=== PATIENT | male | born 1990 | race African-American/Black ===

== ENCOUNTER 2023-12-08 13:45 | Emergency (ER) | payer BC ==
[~2023-12-08] VITALS: Ht 175.3 cm; Wt 99.7 kg
[2023-12-08] VITALS (8 sets, daily range): BP systolic 131–146; BP diastolic 84–97
[2023-12-08 14:23] LABS: BASO% 0.7 % (0-3); EOS% 0.3 % (0-8); HEMATOCRIT 48.7 % (39.0-50.0); HEMOGLOBIN 16.1 g/dl (14.0-18.0); IMMATURE GRANULOCYTES 0.6 % (0.0-5.0); MEAN CELL VOLUME 87.4 fL CALC (80.0-100.0); MEAN CORPUSCULAR HGB 28.9 pG CALC (26.0-32.0); MEAN CORPUSCULAR HGB CONC 33.1 g/dL CAL (32.0-36.0); NEUT# 7.87 thou/uL (1.82-7.42); NEUT% 73.4 % (42-76); RED BLOOD COUNT 5.57 mill/uL (4.70-6.10); RED CELL DISTRI WIDTH 12.2 % (11.5-15.5)
[2023-12-08 14:38] LABS: ALBUMIN 4.9 g/dL (3.2-5.0); ALKALINE PHOSPHATASE 82 u/l (38-126); ANION GAP 15 (6-22 (CALC)); BILIRUBIN, TOTAL 0.5 mg/dL (0.2-1.3); BUN 15 mg/dL (9-20); BUN/CREATININE RATIO 17 (12-20 (CALC)); CARBON DIOXIDE 21 mmol/l (22-30); CHLORIDE 106 mmol/l (95-108); CREATININE 0.9 mg/dL (0.7-1.3); GFR FOR AFR.AMER. > 60 ML/MIN (>=60 (CALC)); GFR OTHER RACES > 60 ML/MIN (>=60 (CALC)); LIPASE 229 u/l (23-300); POTASSIUM 4.1 mmol/l (3.5-5.1); SGOT/AST 44 u/l (17-59); SODIUM 138 mmol/l (137-146); TOTAL PROTEIN 8.4 g/dL (6.3-8.2)
[2023-12-08 14:39] LABS: ACT PARTIAL THROMBO TIME 21.9 SECONDS (20.0-32.5); INTERNATIONAL NORMALIZED RATIO 1.1 RATIO (0.7-1.3); PROTHROMBIN TIME 10.7 SECONDS (9.0-12.5)
[2023-12-08 17:18] LABS: URINE BILIRUBIN - DIPSTICK Negative (NEGATIVE); URINE BLOOD DIPSTICK Negative (NEGATIVE); URINE CLARITY Clear; URINE GLUCOSE - DIPSTICK Negative (NEGATIVE); URINE KETONE 15 mg/dL (NEGATIVE); URINE LEUK ESTERASE Negative (Negative); URINE NITRITE - DIPSTICK Negative (Negative); URINE PH 6.5 (4.5-8.0); URINE PROTEIN - DIPSTICK 30 mg/dL (NEG-TRACE); URINE SPECIFIC GRAVITY >=1.030; URINE UROBILINOGEN - DIPSTICK 0.2 E.U./dL (0.2)
[2023-12-08 17:23] LABS: URINE COLOR Yellow
[2023-12-08 17:25] LABS: URINE MUCUS FEW hpf (NONE-FEW)
[2023-12-08] MEDS ORDERED: ONDANSETRON4 MG PO (18:06)
== END 2023-12-08 18:39 | disposition home or self-care (01) | DRG 392 ==
LOC: ED 13:45
PROVIDERS: Nurse Practitioner Acute Care
DX: R10.13 Epigastric pain (principal); R11.2 Nausea with vomiting, unspecified; F17.290 Nicotine dependence, other tobacco product, uncomplicated; Z20.822 Contact with and (suspected) exposure to COVID-19

== ENCOUNTER 2024-01-24 23:16 | Emergency (ER) | payer BC ==
[~2024-01-24] VITALS: Ht 175.3 cm; Wt 92.9 kg
[~2024-01-24 23:16] MED LIST: ONDANSETRON4 MG PO
[2024-01-24 23:34] VITALS: BP 126/79
[2024-01-25 00:01] VITALS: BP 153/96
[2024-01-25] MEDS ORDERED: HYDROmorphone HCL 2 MG/AMP IV STA (00:51)
[2024-01-25] MEDS ORDERED: ONDANSETRON HCl 4 MG/2 ML SDV IV ONE (00:55)
[2024-01-25] MEDS ORDERED: Pantoprazole Sodium 40 MG VIAL (Protonix) IV ONE (00:55)
[2024-01-25 01:01] VITALS: BP 123/76
[2024-01-25 02:04] LABS: BASO% 0.6 % (0-3); EOS% 0.1 % (0-8); HEMATOCRIT 45.1 % (39.0-50.0); HEMOGLOBIN 14.9 g/dl (14.0-18.0); IMMATURE GRANULOCYTES 0.4 % (0.0-5.0); LYMPH% 16.5 % (15-41); MEAN CELL VOLUME 87.9 fL CALC (80.0-100.0); NEUT# 7.91 thou/uL (1.82-7.42); NEUT% 77.4 % (42-76); RED BLOOD COUNT 5.13 mill/uL (4.70-6.10); RED CELL DISTRI WIDTH 12.4 % (11.5-15.5)
[2024-01-25 02:22] LABS: ALBUMIN 4.6 g/dL (3.2-5.0); ALKALINE PHOSPHATASE 70 u/l (38-126); AMYLASE 93 u/l (30-110); ANION GAP 16 (6-22 (CALC)); BILIRUBIN, TOTAL 0.6 mg/dL (0.2-1.3); BUN 13 mg/dL (9-20); BUN/CREATININE RATIO 15 (12-20 (CALC)); CARBON DIOXIDE 19 mmol/l (22-30); CHLORIDE 107 mmol/l (95-108); CREATININE 0.8 mg/dL (0.7-1.3); GFR FOR AFR.AMER. > 60 ML/MIN (>=60 (CALC)); GFR OTHER RACES > 60 ML/MIN (>=60 (CALC)); LIPASE 219 u/l (23-300); SGOT/AST 36 u/l (17-59); SODIUM 138 mmol/l (137-146); TOTAL PROTEIN 7.8 g/dL (6.3-8.2)
[2024-01-25] MEDS ORDERED: SODIUM CHLORIDE 0.9% 1,000 ML IV STA (02:45)
[2024-01-25] MEDS ORDERED: PROTONIX40 M2 PO (03:55)
[2024-01-25 04:35] LABS: URINE BLOOD DIPSTICK Negative (NEGATIVE); URINE GLUCOSE - DIPSTICK Negative (NEGATIVE); URINE KETONE 40 mg/dL (NEGATIVE); URINE LEUK ESTERASE Negative (NEGATIVE); URINE NITRITE - DIPSTICK Negative (Negative); URINE PH 6.5 (4.5-8.0); URINE PROTEIN - DIPSTICK 100 mg/dL (NEG-TRACE); URINE SPECIFIC GRAVITY >=1.030
[2024-01-25 04:37] LABS: URINE COLOR Yellow
[2024-01-25 04:54] VITALS: BP 123/76
[2024-01-25 05:08] LABS: URINE MUCUS MANY hpf (NONE-FEW); URINE SQUAMOUS EPITHELIAL CELL FEW EPI/hpf (0-FEW); URINE WBC 0-2 WBC/hpf (0-5)
[2024-01-25] MEDS ORDERED: ZOFRAN4 MG/TAB PO (07:35)
== END 2024-01-25 04:55 | disposition home or self-care (01) | DRG 392 ==
LOC: ED 23:16
PROVIDERS: Family Medicine
DX: K29.70 Gastritis, unspecified, without bleeding (principal); F17.290 Nicotine dependence, other tobacco product, uncomplicated
CPT/HCPCS: S0164

== ENCOUNTER 2024-07-31 11:34 | Emergency (ER) | payer BC ==
[~2024-07-31] VITALS: Ht 175.3 cm; Wt 81.6 kg
[2024-07-31] VITALS (17 sets, daily range): BP systolic 108–152; BP diastolic 60–108
[~2024-07-31 11:34] MED LIST changes: +PROTONIX40 M2 PO; +ZOFRAN4 MG/TAB PO
[2024-07-31] MEDS ORDERED: SODIUM CHLORIDE 0.9% 1,000 ML IV STA (12:48)
[2024-07-31] MEDS ORDERED: ONDANSETRON HCl 4 MG/2 ML SDV IV STA (12:48)
[2024-07-31] MEDS ORDERED: Pantoprazole Sodium 40 MG VIAL (Protonix) IV STA (12:48)
[2024-07-31] MEDS ORDERED: FAMOTIDINE 10MG/ML 2ML SDV IV ONE (12:50)
[2024-07-31 13:01] LABS: BASO% 0.3 % (0-3); HEMATOCRIT 47.7 % (39.0-50.0); IMMATURE GRANULOCYTES 0.2 % (0.0-5.0); LYMPH% 17.2 % (15-41); MEAN CELL VOLUME 88.8 fL CALC (80.0-100.0); MEAN CORPUSCULAR HGB 29.8 pG CALC (26.0-32.0); MEAN CORPUSCULAR HGB CONC 33.5 g/dL CAL (32.0-36.0); MONO% 11.3 % (2-13); NEUT# 6.9 thou/uL (1.82-7.42); RED BLOOD COUNT 5.37 mill/uL (4.70-6.10); RED CELL DISTRI WIDTH 12.5 % (11.5-15.5)
[2024-07-31 13:11] LABS: ALBUMIN 4.6 g/dL (3.2-5.0); BILIRUBIN, TOTAL 0.6 mg/dL (0.2-1.3); CREATININE 0.9 mg/dL (0.7-1.3); POTASSIUM 3.7 mmol/l (3.5-5.1); TOTAL PROTEIN 7.8 g/dL (6.3-8.2)
[2024-07-31 15:03] LABS: URINE BLOOD DIPSTICK Negative (NEGATIVE); URINE COLOR Yellow; URINE GLUCOSE - DIPSTICK Negative (NEGATIVE); URINE KETONE 40 mg/dL (NEGATIVE); URINE LEUK ESTERASE Negative (NEGATIVE); URINE NITRITE - DIPSTICK Negative (Negative); URINE PROTEIN - DIPSTICK Trace mg/dL (NEG-TRACE)
[2024-07-31] MEDS ORDERED: ONDANSETRON4 MG PO (15:58)
[2024-07-31] MEDS ORDERED: PROTONIX40 M2 PO (15:58)
== END 2024-07-31 16:31 | disposition home or self-care (01) | DRG 392 ==
LOC: ED 11:34
PROVIDERS: Nurse Practitioner
DX: K29.70 Gastritis, unspecified, without bleeding (principal); Z72.0 Tobacco use
CPT/HCPCS: J2470; Q9967

== ENCOUNTER 2025-01-28 16:27 | Emergency (ER) | payer BC ==
[2025-01-28] VITALS (17 sets, daily range): BP systolic 123–171; BP diastolic 75–104
[~2025-01-28] VITALS: Ht 175.3 cm; Wt 86.1 kg
[2025-01-28] MEDS ORDERED: SODIUM CHLORIDE 0.9% 1,000 ML IV STA (17:33)
[2025-01-28] MEDS ORDERED: Pantoprazole Sodium 40 MG VIAL (Protonix) IV STA (17:33)
[2025-01-28] MEDS ORDERED: PROMETHAZINE HCL 25 MG/ML AMP IV STA (17:33)
[2025-01-28 17:42] LABS: BASO% 0.4 % (0-3); EOS% 0.2 % (0-8); HEMATOCRIT 47.9 % (39.0-50.0); HEMOGLOBIN 16.4 g/dl (14.0-18.0); IMMATURE GRANULOCYTES 0.2 % (0.0-5.0); LYMPH% 17.9 % (15-41); MEAN CELL VOLUME 88.1 fL CALC (80.0-100.0); MEAN CORPUSCULAR HGB 30.1 pG CALC (26.0-32.0); MEAN CORPUSCULAR HGB CONC 34.2 g/dL CAL (32.0-36.0); MONO% 6.2 % (2-13); NEUT# 7.54 thou/uL (1.82-7.42); NEUT% 75.1 % (42-76); RED BLOOD COUNT 5.44 mill/uL (4.70-6.10); RED CELL DISTRI WIDTH 12.2 % (11.5-15.5)
[2025-01-28 17:47] LABS: ALBUMIN 4.6 g/dL (3.2-5.0); BILIRUBIN, TOTAL 0.7 mg/dL (0.2-1.3); POTASSIUM 3.8 mmol/l (3.5-5.1)
[2025-01-28] MEDS ORDERED: SODIUM CHLORIDE 0.9% 1,000 ML IV ONE (19:50)
[2025-01-28] MEDS ORDERED: ALUM & MAG HYDROX-SIMETHICONE 30 ML PO ONE (19:55)
[2025-01-28 20:49] LABS: URINE BLOOD DIPSTICK Negative (NEGATIVE); URINE COLOR Dark yellow; URINE GLUCOSE - DIPSTICK Negative (NEGATIVE); URINE KETONE 80 mg/dL (NEGATIVE); URINE LEUK ESTERASE Negative (NEGATIVE); URINE NITRITE - DIPSTICK Negative (Negative); URINE PH >=9.0 (4.5-8.0); URINE PROTEIN - DIPSTICK 100 mg/dL (NEG-TRACE)
[2025-01-28 20:54] LABS: URINE AMORPH SEDIMENT FEW hpf (NONE-FER); URINE MUCUS FEW hpf (NONE-FEW)
[2025-01-28] MEDS ORDERED: PEPCID40 MG PO (21:07)
[2025-01-28] MEDS ORDERED: PROMETHAZINE HY25 M1 PO (21:08)
== END 2025-01-28 21:24 | disposition home or self-care (01) | DRG 392 ==
LOC: ED 16:27
PROVIDERS: Emergency Medicine
DX: K29.20 Alcoholic gastritis without bleeding (principal); Z72.0 Tobacco use
CPT/HCPCS: J2470; J2550